=== PATIENT | male | born 1980 | race Caucasian/White ===

== ENCOUNTER 2022-03-16 04:33 | Emergency (ER) | payer BC ==
[~2022-03-16] VITALS: Ht 165.1 cm; Wt 83.9 kg
[~2022-03-16 04:33] MED LIST: CEPH500 PO; HYDACE5 PO; HYDROCODON-ACET15 ML PO; Pepcid40 MG PO; Zofran Odt4 MG PO
[2022-03-16] MEDS ORDERED: Voltaren100 GM TOP (06:48)
[2022-03-16] MEDS ORDERED: HYDR1TAB94 PO (06:48)
[2022-03-16] MEDS ORDERED: PRED20 PO (06:48)
== END 2022-03-16 07:14 | disposition home or self-care (01) ==
LOC: ER 04:33
DX: M25.552 Pain in left hip (principal); Z79.52 Long term (current) use of systemic steroids
CPT/HCPCS: 73502; A9270